=== PATIENT | female | born 1955 ===

== ENCOUNTER 2018-07-21 08:31 | Emergency (ER) | payer BC ==
[~2018-07-21] VITALS: Ht 152.4 cm; Wt 68.0 kg
[2018-07-21] MEDS ORDERED: PROTONIX40 M1 (08:47)
[2018-07-21] MEDS ORDERED: SUCRALFATE1 GM/10 ML PO (08:47)
[2018-07-21] MEDS ORDERED: RANITIDINE HCL150 M1 PO (08:48)
[2018-07-21] MEDS ORDERED: LISINOPRIL2.5 MG PO (08:48)
[2018-07-21] MEDS ORDERED: SIMVASTATIN40 MG PO (08:48)
[2018-07-21] MEDS ORDERED: TUSSI PRES-B L120 M1 PO (10:56)
[2018-07-21] MEDS ORDERED: TESSALON PERLE100 M1 PO (10:56)
== END 2018-07-21 11:02 | disposition home or self-care (01) ==
LOC: ER 08:31
DX: J06.9 Acute upper respiratory infection, unspecified (principal)